=== PATIENT | female | born 1985 | race Caucasian/White ===

== ENCOUNTER 2019-01-23 06:22 | Emergency (ER) | payer BC ==
[2019-01-23] MEDS ORDERED: 0.9 % SODIUM CHLORIDE 1,000 ML BAG IV ONE (06:29)
--- NOTE | 2019-01-23 06:40 | Emergency Department Record ---
History of Present Illness - General Source: Patient - History of Present Illness Initial comments: Livier is a [id number] [birth year] who took her home test 12-27-18 which was positive. She has her first appointment with her OB nurse practitioner tomorrow. She has been nauseated and dry heaving since finding out she was . She has soaked one heavy pad and passed multiple quarter sized clots but has seen no tissue. She has had mild cramping since this a.m. at 0600. Complaint: Other (vaginal bleeding with mild cramping) <MISSY SANDERS - Last Filed: 01/23/19 06:27> <Reid Lindsey - Last Filed: 01/23/19 09:58> - General Chief complaint: complication Stated complaint: POSS. MISCARRIAGE Time Seen by Provider: 01/23/19 06:27 - Related Data Allergies Allergy/AdvReac Type Severity Reaction Status Date / Time No Known Drug Allergies Allergy Verified 01/23/19 06:59 Review of Systems Reviewed: No additional complaints except as noted below Constitutional: Reports: As per HPI. Denies: Chills, Fever, Malaise, Night sweats, Weakness, Weight change Eyes: Reports: As per HPI. Denies: Eye discharge, Eye pain, Photophobia, Vision change ENT: Reports: As per HPI. Denies: Congestion, Dental pain, Ear pain, Epistaxis , Hearing loss, Throat pain Respiratory: Reports: As per HPI. Denies: Cough, Dyspnea, Hemoptysis, Stridor, Wheezes Cardiovascular: Reports: As per HPI. Denies: Arrhythmia, Chest pain, Dyspnea on exertion, Edema, Murmurs, Orthopnea, Palpitations, Paroxysmal nocturnal dyspnea, Rheumatic Fever, Syncope Endocrine: Reports: As per HPI. Denies: Fatigue, Heat or cold intolerance, Polydipsia, Polyuria Gastrointestinal: Reports: As per HPI, Nausea. Denies: Abdominal pain, Constipation, Diarrhea, Hematemesis, Hematochezia, Melena, Vomiting Genitourinary: Reports: As per HPI. Denies: Abnormal menses, Discharge, Dyspareunia, Dysuria, Frequency, Hematuria, Incontinence, Retention, Urgency Musculoskeletal: Reports: As per HPI. Denies: Arthralgia, Back pain, Gout, Joint swelling, Myalgia, Neck pain Skin: Reports: As per HPI. Denies: Bruising, Change in color, Change in hair/ nails, Lesions, Pruritus, Rash Neurological: Reports: As per HPI. Denies: Abnormal gait, Confusion, Headache, Numbness, Paresthesias, Seizure, Tingling, Tremors, Vertigo, Weakness Psychiatric: Reports: As per HPI. Denies: Anxiety, Auditory hallucinations, Depression, Homicidal thoughts, Suicidal thoughts, Visual hallucinations Hematological/Lymphatic: Reports: As per HPI. Denies: Anemia, Blood Clots, Easy bleeding, Easy bruising, Swollen glands <MISSY SANDERS - Last Filed: 01/23/19 06:27> Past Medical History - SOCIAL HISTORY Smoking Status: Former smoker <SOHEILAJOSERICHIEMISSY A - Last Filed: 01/23/19 06:27> Physical Exam - General General Appearance: Alert, Oriented x3, Cooperative, Mild distress (tearful) - Head Head exam: Normal inspection - Eye Eye exam: Normal appearance, PERRL, EOMI. negative: Conjunctival injection, Nystagmus Pupils: Normal accommodation - ENT ENT exam: Normal exam, Mucous membranes moist, Normal external ear exam, Normal orophraynx, TM's normal bilaterally Ear exam: Normal external inspection. negative: External canal tenderness Nasal Exam: Normal inspection. negative: Discharge, Sinus tenderness Mouth exam: Normal external inspection, Tongue normal Teeth exam: Normal inspection. negative: Dental caries Throat exam: Normal inspection. negative: Tonsillar erythema, Tonsillar exudate - Neck Neck exam: Normal inspection, Full ROM. negative: Lymphadenopathy, Meningismus , Tenderness - Respiratory Respiratory exam: Normal lung sounds bilaterally. negative: Respiratory distress - Cardiovascular Cardiovascular Exam: Normal rhythm, Normal heart sounds, Tachycardia - GI/Abdominal GI/Abdominal exam: Soft, Normal bowel sounds, Other (obese, soft, nontender). negative: Tenderness - Rectal Rectal exam: Deferred - exam: Vaginal bleeding (estimated to be the amount of a heaavy period, no tissue ), Other (os closed, no clots in vault; unable to feel size of uterus due to obesity) - Extremities Extremities exam: Normal inspection, Full ROM, Normal capillary refill. negative: Calf tenderness, Pedal edema, Tenderness - Back Back exam: Reports: Normal inspection, Full ROM. Denies: CVA tenderness (R), CVA tenderness (L), Muscle spasm, Rash noted, Tenderness - Neurological Neurological exam: Alert, CN II-XII intact, Normal gait, Oriented X3, Reflexes normal. negative: Altered, Motor sensory deficit - Psychiatric Psychiatric exam: Normal affect, Normal mood - Skin Skin exam: Dry, Intact, Normal color, Warm <MISSY SANDERS - Last Filed: 01/23/19 06:27> Course - Reevaluation(s) Reevaluation #1: Patient declined the zofran that was offered her. Care is turned over to Dr. Lindsey due to shift change due to pending studies. 01/23/19 07:04 <MISSY SANDERS - Last Filed: 01/23/19 06:27> Vital Signs 01/23/19 01/23/19 01/23/19 06:25 06:28 07:22 Temperature 97.7 F 97.7 F Pulse Rate 104 H Pulse Rate [ 72 52 L Pulse Ox Probe] Respiratory 16 16 16 Rate Blood Pressure 135/89 Blood Pressure 135/89 [Left Arm] Blood Pressure 126/77 [Right Arm] Pulse Ox 99 99 100 - Reevaluation(s) Reevaluation #2: The patient just returned from [place] and is doing OK. She is having some pelvic cramping with some mild bleeding but denies any need for pain. 01/23/19 09:28 Reevaluation #3: The patient is doing very well at this time. She has no further bleeding but is having some mild cramping. I did discuss the case with Starla in Dr. Harini Herrmann office in [place] and she would like an HCG to be drawn in 2 days and the patient to F/U in the office. The patient understands and is aware of the plan. 01/23/19 09:56 <Reid Lindsey - Last Filed: 01/23/19 09:58> Medical Decision Making - Lab Data Result diagrams: 01/23/19 07:00 01/23/19 07:00 Lab Results 01/23/19 01/23/19 01/23/19 Range/Units 07:00 07:00 07:00 WBC 6.6 (4.2-12.2) K/uL RBC 3.86 (3.80-5.40) M/uL Hgb 11.7 (11.6-16.0) gm/dl Hct 36.9 (35.0-47.0) % MCV 95.6 (81-97) fl MCH 30.3 (27-33) pg MCHC 31.7 L (32-36) g/dl RDW 13.8 (11.5-14.5) % Plt Count 284 (130-400) K/uL MPV 9.6 (7.4-10.4) fl Gran % 71.4 (47-80) % Lymphocytes % 17.1 (16-45) % Monocytes % 8.3 (0-9) % Eosinophils % 2.6 (0-6) % Basophils % 0.6 (0-6) % PT 9.8 (9.5-12.1) SECONDS INR 1.0 APTT 27.7 (24.5-39.1) SECONDS Sodium (136-145) mmol/L Potassium (3.4-4.5) mmol/L Chloride (98-107) mmol/L Carbon Dioxide (22-29) mmol/L Anion Gap (7-16) BUN (6-20) mg/dL Creatinine (0.5-0.9) mg/dL Estimated GFR mL/min Random Glucose (74-109) mg/dL Calcium (8.6-10.0) mg/dL Total Bilirubin (0.2-1.0) mg/dL AST (10.0-35.0) U/L ALT (<33) U/L Alkaline Phosphatase (35-104) U/L Total Protein (6.6-8.7) g/dL Albumin (4.0-5.0) g/dL Globulin (1.4-4.8) gm/dL Albumin/Globulin Ratio (1.1-1.8) Total Beta HCG mIU/mL Urine Color Yellow Urine Appearance Clear Urine pH 6.5 (5.0-8.0) Ur Specific [place] 1.025 (1.002-1.030) Urine Protein Negative (NEGATIVE) Urine Glucose (UA) Negative (NEGATIVE) Urine Ketones Negative (NEGATIVE) Urine Blood Large H (NEGATIVE) Urine Nitrite Negative (NEGATIVE) Urine Bilirubin Negative (NEGATIVE) Urine Urobilinogen 0.2 (0.20 - 1.00) E.U./dL Ur Leukocyte Esterase Negative (NEGATIVE) Urine RBC 10 - 15 (NONE SEEN) Urine WBC 0 - 2 (0-2/hpf) Ur Epithelial Cells 0 - 2 (FEW) Urine HCG, Qual Cancelled Rh Factor 01/23/19 01/23/19 01/23/19 Range/Units 07:00 07:00 07:08 WBC (4.2-12.2) K/uL RBC (3.80-5.40) M/uL Hgb (11.6-16.0) gm/dl Hct (35.0-47.0) % MCV (81-97) fl MCH (27-33) pg MCHC (32-36) g/dl RDW (11.5-14.5) % Plt Count (130-400) K/uL MPV (7.4-10.4) fl Gran % (47-80) % Lymphocytes % (16-45) % Monocytes % (0-9) % Eosinophils % (0-6) % Basophils % (0-6) % PT (9.5-12.1) SECONDS INR APTT (24.5-39.1) SECONDS Sodium 141 (136-145) mmol/L Potassium 4.1 (3.4-4.5) mmol/L Chloride 109 H (98-107) mmol/L Carbon Dioxide 22.0 (22-29) mmol/L Anion Gap 10.0 (7-16) BUN 10 (6-20) mg/dL Creatinine 0.4 L (0.5-0.9) mg/dL Estimated GFR > 60 mL/min Random Glucose 94 (74-109) mg/dL Calcium 8.6 (8.6-10.0) mg/dL Total Bilirubin 0.20 (0.2-1.0) mg/dL AST 13 (10.0-35.0) U/L ALT 13 (<33) U/L Alkaline Phosphatase 88 (35-104) U/L Total Protein 6.9 (6.6-8.7) g/dL Albumin 3.9 L (4.0-5.0) g/dL Globulin 3.0 (1.4-4.8) gm/dL Albumin/Globulin Ratio 1.3 (1.1-1.8) Total Beta HCG > 16269 mIU/mL Urine Color Urine Appearance Urine pH (5.0-8.0) Ur Specific [place] (1.002-1.030) Urine Protein (NEGATIVE) Urine Glucose (UA) (NEGATIVE) Urine Ketones (NEGATIVE) Urine Blood (NEGATIVE) Urine Nitrite (NEGATIVE) Urine Bilirubin (NEGATIVE) Urine Urobilinogen (0.20 - 1.00) E.U./dL Ur Leukocyte Esterase (NEGATIVE) Urine RBC (NONE SEEN) Urine WBC (0-2/hpf) Ur Epithelial Cells (FEW) Urine HCG, Qual Rh Factor Positive <Reid Lindsey Carmen - Last Filed: 01/23/19 09:58> Disposition <CHASEVASQUEZSaranKORIY Steve - Last Filed: 01/23/19 06:27> Disposition: Discharge Time of Disposition: 09:56 <Reid Lindsey Carmen - Last Filed: 01/23/19 09:58> Clinical Impression: Threatened in early Disposition: Home, Self-Care Condition: (2) Stable Instructions: Threatened Miscarriage (ED) Additional Instructions: Please take Tylenol for cramping and please see Dr. Rodriguez early next week for recheck. Have the Quantitative HCG drawn on Sunday. Return to the ER for any worsening pain, fever, or worsening bleeding. Quality - Blood Pressure Screening Does Patient Have Any of the Following: No <MISSY SANDERS - Last Filed: 01/23/19 06:27> - Quality Measures Quality Measures: (14-50yr) - : US Determination Quality Measure: Measure #254: US Determination of Location ICD10 Codes Entered: Yes View Details: Yes US Determination of Location: < Trans-Abdominal or Trans-Vaginal US Performed > [G8806] - : Rhogam Quality Measure: Measure #255: Rhogam for Rh-Negative Women ICD10 Codes Entered: Yes View Details: Yes Rhogam for Rh-Negative Women at Risk: Rh-immunoglobulin NOT Ordered w/ Reason [G8810] Reason for not prescribing Rhogam: Other - Blood Pressure Screening View Details: Yes Does Patient Have Any of the Following: No Blood Pressure Classification: Pre-Hypertensive BP Reading Systolic Measurement: 135 Diastolic Measurement: 89 Screening for High Blood Pressure: < Pre-Hypertensive BP, F/U Documented > [ G8950] Pre-Hypertensive Follow-up Interventions: Referral to alternative/primary care provider. <Reid Lindsey - Last Filed: 01/23/19 09:58>
[2019-01-23 07:03] LABS: BASO % 0.6 % (0-6); EOS % 2.6 % (0-6); GRAN % 71.4 % (47-80); HEMATOCRIT 36.9 % (35.0-47.0); HEMOGLOBIN 11.7 gm/dl (11.6-16.0); LYMPH % 17.1 % (16-45); MEAN CELL VOLUME 95.6 fl (81-97); MEAN CORPUSCULAR HEMOGLOBIN 30.3 pg (27-33); MEAN CORPUSCULAR HGB CONC 31.7 g/dl (32-36); MEAN PLATELET VOLUME 9.6 fl (7.4-10.4); MONO % 8.3 % (0-9); PLATELET COUNT 284 K/uL (130-400); RED BLOOD COUNT 3.86 M/uL (3.80-5.40); RED CELL DISTRIBUTION WIDTH 13.8 % (11.5-14.5); WHITE BLOOD COUNT W/O DIFF 6.6 K/uL (4.2-12.2)
[2019-01-23 07:05] LABS: URINE APPEARANCE CLEAR; URINE BILIRUBIN NEGATIVE (NEGATIVE); URINE BLOOD LARGE (NEGATIVE); URINE COLOR YELLOW; URINE GLUCOSE (UA) NEGATIVE (NEGATIVE); URINE KETONE NEGATIVE (NEGATIVE); URINE LEUKOCYTE ESTERASE NEGATIVE (NEGATIVE); URINE NITRITE NEGATIVE (NEGATIVE); URINE PROTEIN NEGATIVE (NEGATIVE); URINE UROBILINOGEN 0.2 E.U./dL (0.20 - 1.00)
[2019-01-23 07:13] LABS: PARTIAL THROMBOPLASTIN TIME 27.7 SECONDS (24.5-39.1); PROTHROMBIN TIME (PATIENT) 9.8 SECONDS (9.5-12.1)
[2019-01-23 07:15] LABS: BLOOD UREA NITROGEN 10 mg/dL (6-20); CREATININE 0.4 mg/dL (0.5-0.9); EST GLOMERULAR FILTRATION RATE > 60 mL/min
[2019-01-23 07:16] LABS: TOTAL PROTEIN 6.9 g/dL (6.6-8.7)
[2019-01-23 07:17] LABS: URINE EPITHELIAL CELLS 0 - 2 (FEW); URINE WBC 0 - 2 (0-2/hpf)
[2019-01-23 07:18] LABS: GLUCOSE,RANDOM 94 mg/dL (74-109)
[2019-01-23 07:21] LABS: ALB/GLOB RATIO 1.3 (1.1-1.8); ALBUMIN 3.9 g/dL (4.0-5.0); ALKALINE PHOSPHATASE 88 U/L (35-104); ALT/SGPT 13 U/L (<33); AST/SGOT 13 U/L (10.0-35.0)
[2019-01-23] MEDS ORDERED: ACETAMINOPHEN 325 MG TAB PO ONE (09:34)
--- NOTE | 2019-01-23 10:01 | Emergency Department Record ---
History of Present Illness - General Chief complaint: complication Stated complaint: POSS. MISCARRIAGE Time Seen by Provider: 01/23/19 06:27 Source: Patient Mode of Arrival: Ambulatory - History of Present Illness Onset/Timin -: Minutes(s) Location: Pelvis Severity scale (1-10): 3 Quality: Cramping Consistency: Constant Improves with: None Worsens with: None Vaginal bleeding: Clots Number of weeks : 9 11/21/18 - Related Data Allergies Allergy/AdvReac Type Severity Reaction Status Date / Time No Known Drug Allergies Allergy Verified 01/23/19 06:59 Review of Systems Constitutional: Reports: As per HPI. Denies: Chills, Fever, Malaise, Night sweats, Weakness, Weight change Eyes: Reports: As per HPI. Denies: Eye discharge, Eye pain, Photophobia, Vision change ENT: Reports: As per HPI. Denies: Congestion, Dental pain, Ear pain, Epistaxis , Hearing loss, Throat pain Respiratory: Reports: As per HPI. Denies: Cough, Dyspnea, Hemoptysis, Stridor, Wheezes Cardiovascular: Reports: As per HPI. Denies: Arrhythmia, Chest pain, Dyspnea on exertion, Edema, Murmurs, Orthopnea, Palpitations, Paroxysmal nocturnal dyspnea, Rheumatic Fever, Syncope Endocrine: Reports: As per HPI. Denies: Fatigue, Heat or cold intolerance, Polydipsia, Polyuria Gastrointestinal: Reports: As per HPI, Nausea. Denies: Abdominal pain, Constipation, Diarrhea, Hematemesis, Hematochezia, Melena, Vomiting Genitourinary: Reports: As per HPI. Denies: Abnormal menses, Discharge, Dyspareunia, Dysuria, Frequency, Hematuria, Incontinence, Retention, Urgency Musculoskeletal: Reports: As per HPI. Denies: Arthralgia, Back pain, Gout, Joint swelling, Myalgia, Neck pain Skin: Reports: As per HPI. Denies: Bruising, Change in color, Change in hair/ nails, Lesions, Pruritus, Rash Neurological: Reports: As per HPI. Denies: Abnormal gait, Confusion, Headache, Numbness, Paresthesias, Seizure, Tingling, Tremors, Vertigo, Weakness Psychiatric: Reports: As per HPI. Denies: Anxiety, Auditory hallucinations, Depression, Homicidal thoughts, Suicidal thoughts, Visual hallucinations Hematological/Lymphatic: Reports: As per HPI. Denies: Anemia, Blood Clots, Easy bleeding, Easy bruising, Swollen glands Past Medical History - SOCIAL HISTORY Smoking Status: Former smoker - RESPIRATORY Hx Respiratory Disorders: No - CARDIOVASCULAR Hx Cardio Disorders: No - NEURO Hx Neuro Disorders: No - GI Hx GI Disorders: Yes Hx Reflux: Yes - Hx Genitourinary Disorders: No - ENDOCRINE Hx Endocrine Disorders: No Hx Thyroid Disease: Yes - MUSCULOSKELETAL Hx Musculoskeletal Disorders: No - PSYCH Hx Psych Problems: Yes Hx Anxiety: Yes Hx Depression: Yes - HEMATOLOGY/ONCOLOGY Hx Hematology/Oncology Disorders: No Family Medical History Any Significant Family History?: Yes Hx Cancer: Grandparents Hx Diabetes: Grandparents Hx Heart Disease: Grandparents Hx HTN: Mother Course Vital Signs 01/23/19 01/23/19 01/23/19 06:25 06:28 07:22 Temperature 97.7 F 97.7 F Pulse Rate 104 H Pulse Rate [ 72 52 L Pulse Ox Probe] Respiratory 16 16 16 Rate Blood Pressure 135/89 Blood Pressure 135/89 [Left Arm] Blood Pressure 126/77 [Right Arm] Pulse Ox 99 99 100 Medical Decision Making - Data Complexity MDM Data: Labs Ordered and/or Reviewed (Patient RH +.), X-Ray Ordered and/or Reviewed - Lab Data Result diagrams: 01/23/19 07:00 01/23/19 07:00 Lab Results 01/23/19 01/23/19 01/23/19 Range/Units 07:00 07:00 07:00 WBC 6.6 (4.2-12.2) K/uL RBC 3.86 (3.80-5.40) M/uL Hgb 11.7 (11.6-16.0) gm/dl Hct 36.9 (35.0-47.0) % MCV 95.6 (81-97) fl MCH 30.3 (27-33) pg MCHC 31.7 L (32-36) g/dl RDW 13.8 (11.5-14.5) % Plt Count 284 (130-400) K/uL MPV 9.6 (7.4-10.4) fl Gran % 71.4 (47-80) % Lymphocytes % 17.1 (16-45) % Monocytes % 8.3 (0-9) % Eosinophils % 2.6 (0-6) % Basophils % 0.6 (0-6) % PT 9.8 (9.5-12.1) SECONDS INR 1.0 APTT 27.7 (24.5-39.1) SECONDS Sodium (136-145) mmol/L Potassium (3.4-4.5) mmol/L Chloride (98-107) mmol/L Carbon Dioxide (22-29) mmol/L Anion Gap (7-16) BUN (6-20) mg/dL Creatinine (0.5-0.9) mg/dL Estimated GFR mL/min Random Glucose (74-109) mg/dL Calcium (8.6-10.0) mg/dL Total Bilirubin (0.2-1.0) mg/dL AST (10.0-35.0) U/L ALT (<33) U/L Alkaline Phosphatase (35-104) U/L Total Protein (6.6-8.7) g/dL Albumin (4.0-5.0) g/dL Globulin (1.4-4.8) gm/dL Albumin/Globulin Ratio (1.1-1.8) Total Beta HCG mIU/mL Urine Color Yellow Urine Appearance Clear Urine pH 6.5 (5.0-8.0) Ur Specific [place] 1.025 (1.002-1.030) Urine Protein Negative (NEGATIVE) Urine Glucose (UA) Negative (NEGATIVE) Urine Ketones Negative (NEGATIVE) Urine Blood Large H (NEGATIVE) Urine Nitrite Negative (NEGATIVE) Urine Bilirubin Negative (NEGATIVE) Urine Urobilinogen 0.2 (0.20 - 1.00) E.U./dL Ur Leukocyte Esterase Negative (NEGATIVE) Urine RBC 10 - 15 (NONE SEEN) Urine WBC 0 - 2 (0-2/hpf) Ur Epithelial Cells 0 - 2 (FEW) Urine HCG, Qual Cancelled Rh Factor 01/23/19 01/23/19 01/23/19 Range/Units 07:00 07:00 07:08 WBC (4.2-12.2) K/uL RBC (3.80-5.40) M/uL Hgb (11.6-16.0) gm/dl Hct (35.0-47.0) % MCV (81-97) fl MCH (27-33) pg MCHC (32-36) g/dl RDW (11.5-14.5) % Plt Count (130-400) K/uL MPV (7.4-10.4) fl Gran % (47-80) % Lymphocytes % (16-45) % Monocytes % (0-9) % Eosinophils % (0-6) % Basophils % (0-6) % PT (9.5-12.1) SECONDS INR APTT (24.5-39.1) SECONDS Sodium 141 (136-145) mmol/L Potassium 4.1 (3.4-4.5) mmol/L Chloride 109 H (98-107) mmol/L Carbon Dioxide 22.0 (22-29) mmol/L Anion Gap 10.0 (7-16) BUN 10 (6-20) mg/dL Creatinine 0.4 L (0.5-0.9) mg/dL Estimated GFR > 60 mL/min Random Glucose 94 (74-109) mg/dL Calcium 8.6 (8.6-10.0) mg/dL Total Bilirubin 0.20 (0.2-1.0) mg/dL AST 13 (10.0-35.0) U/L ALT 13 (<33) U/L Alkaline Phosphatase 88 (35-104) U/L Total Protein 6.9 (6.6-8.7) g/dL Albumin 3.9 L (4.0-5.0) g/dL Globulin 3.0 (1.4-4.8) gm/dL Albumin/Globulin Ratio 1.3 (1.1-1.8) Total Beta HCG > 75986 mIU/mL Urine Color Urine Appearance Urine pH (5.0-8.0) Ur Specific [place] (1.002-1.030) Urine Protein (NEGATIVE) Urine Glucose (UA) (NEGATIVE) Urine Ketones (NEGATIVE) Urine Blood (NEGATIVE) Urine Nitrite (NEGATIVE) Urine Bilirubin (NEGATIVE) Urine Urobilinogen (0.20 - 1.00) E.U./dL Ur Leukocyte Esterase (NEGATIVE) Urine RBC (NONE SEEN) Urine WBC (0-2/hpf) Ur Epithelial Cells (FEW) Urine HCG, Qual Rh Factor Positive - Radiology Data Radiology results: Report reviewed (US: IUP with no pole or heart beat. Most consistent with miscarriage. Trace free fluid.) Disposition Clinical Impression: Threatened in early Disposition: Home, Self-Care Condition: (2) Stable Instructions: Threatened Miscarriage (ED) Additional Instructions: Please take Tylenol for cramping and please see Dr. Rodriguez early next week for recheck. Have the Quantitative HCG drawn on Sunday. Return to the ER for any worsening pain, fever, or worsening bleeding. Forms: Patient Portal Access Quality - Quality Measures Quality Measures: (14-50yr) - : US Determination Quality Measure: Measure #254: US Determination of Location ICD10 Codes Entered: Yes View Details: Yes US Determination of Location: < Trans-Abdominal or Trans-Vaginal US Performed > [G8806] - : Rhogam Quality Measure: Measure #255: Rhogam for Rh-Negative Women ICD10 Codes Entered: Yes View Details: Yes Rhogam for Rh-Negative Women at Risk: Rh-immunoglobulin NOT Ordered w/ Reason [G8810] Reason for not prescribing Rhogam: Other - Blood Pressure Screening View Details: Yes Does Patient Have Any of the Following: No Blood Pressure Classification: Pre-Hypertensive BP Reading Systolic Measurement: 135 Diastolic Measurement: 89 Screening for High Blood Pressure: < Pre-Hypertensive BP, F/U Documented > [ G8950] Pre-Hypertensive Follow-up Interventions: Referral to alternative/primary care provider.
--- NOTE | 2019-01-24 08:47 | ULTRASOUND REPORT ---
EXAM: EARLY OB ULTRASOUND HISTORY: , SPOTTING, NOW PASSING CLOTS. TECHNIQUE: Transabdominal and transvaginal pelvic ultrasound was obtained. Comparison: None. FINDINGS: The uterus measures 9.9 x 5.5 x 6.2 cm and contains a gestational sac , yolk sac, and likely pole. No heart tones are detected. Mean sac diameter is 22 mm. [employer] rump length is approximately 6 mm. The yolk sac measures up to 9 mm. Questionable trace fluid within the cervical canal. Trace volume of free fluid in the left adnexal region. The right ovary measures 2.5 x 1.4 x 2.2 cm and the left ovary measures 2.9 x 2.4 x 2.8 cm. Bilateral intraovarian color flow as well as arterial and venous Doppler waveforms are demonstrated. No adnexal mass is seen. IMPRESSION: 1. INTRAUTERINE GESTATION WITHOUT DETECTABLE HEARTBEAT. FINDINGS OVERALL SUSPICIOUS FOR FAILED EARLY GESTATION. RECOMMEND CORRELATION WITH SERIAL HCG, FOLLOW-UP IMAGING WARRANTED CLINICALLY. 2. TRACE VOLUME OF NONSPECIFIC FREE FLUID NEAR THE LEFT ADNEXA. JOB NUMBER: [id number] [facility]
== END 2019-01-23 10:00 | disposition home or self-care (01) ==
LOC: ER 06:22
DX: O20.0 Threatened abortion (principal); R11.2 Nausea with vomiting, unspecified; Z3A.09 9 weeks gestation of pregnancy; Z87.891 Personal history of nicotine dependence
CPT/HCPCS: 76801; 76817; 80053; 81001; 84702; 85025; 85610; 85730; 86901; 96360; 96361; 99284

== ENCOUNTER 2019-04-25 01:56 | Emergency (ER) | payer BC ==
--- NOTE | 2019-04-25 02:16 | Emergency Department Record ---
History of Present Illness - General Chief complaint: complication Stated complaint: POSSIBLE MISCARRAGE Time Seen by Provider: 04/25/19 02:00 Source: Patient Mode of Arrival: Ambulatory Limitations: No limitations - History of Present Illness Initial comments: 34 yo female at approximately 9 weeks gestation by dates presents to ED for evaluation of lower abdominal cramping, spotting, and loose stools. Patient reports similar symptoms at the end of December, had spontaneous miscarriage at that time. Patient reports seeing her OB earlier in the day (Dr. Claudio), has not undergone US evaluation of this . MD Complaint: Abdominal pain Onset/Timin -: Hour(s) Location: Abdomen Radiation: None Severity: Moderate Quality: Cramping Consistency: Constant Improves with: None Worsens with: None Associated symptoms: Nausea/vomiting Vaginal bleeding: Light No complications Miscarriage - Related Data Allergies Allergy/AdvReac Type Severity Reaction Status Date / Time No Known Drug Allergies Allergy Verified 04/25/19 02:11 Review of Systems Constitutional: Denies: Chills, Fever, Malaise, Night sweats Eyes: Denies: Eye discharge, Eye pain ENT: Denies: Congestion, Ear pain, Epistaxis Respiratory: Denies: Cough, Dyspnea Cardiovascular: Denies: Chest pain, Dyspnea on exertion Endocrine: Denies: Fatigue, Heat or cold intolerance Gastrointestinal: Reports: Abdominal pain, Nausea. Denies: Constipation, Vomiting Genitourinary: Denies: Incontinence, Retention Musculoskeletal: Denies: Arthralgia, Back pain Skin: Denies: Bruising, Change in color Neurological: Denies: Abnormal gait, Confusion, Headache, Seizure Psychiatric: Denies: Anxiety Hematological/Lymphatic: Denies: Anemia, Blood Clots Past Medical History - SOCIAL HISTORY Smoking Status: Former smoker - RESPIRATORY Hx Respiratory Disorders: No - CARDIOVASCULAR Hx Cardio Disorders: No - NEURO Hx Neuro Disorders: No - GI Hx GI Disorders: Yes Hx Reflux: Yes - Hx Genitourinary Disorders: No - ENDOCRINE Hx Endocrine Disorders: No Hx Thyroid Disease: Yes - MUSCULOSKELETAL Hx Musculoskeletal Disorders: No - PSYCH Hx Psych Problems: Yes Hx Anxiety: Yes Hx Depression: Yes - HEMATOLOGY/ONCOLOGY Hx Hematology/Oncology Disorders: No Family Medical History Hx Cancer: Grandparents Hx Diabetes: Grandparents Hx Heart Disease: Grandparents Hx HTN: Mother Physical Exam - General General Appearance: Alert, Oriented x3, Cooperative, Mild distress Limitations: No limitations - Head Head exam: Atraumatic, Normocephalic, Normal inspection Head exam detail: negative: Abrasion, Contusion, Smith's sign, General tenderness, Hematoma, Laceration - Eye Eye exam: Normal appearance. negative: Conjunctival injection, Periorbital swelling, Periorbital tenderness, Scleral icterus - ENT Ear exam: negative: Auricular hematoma, Auricular trauma Nasal Exam: negative: Active bleeding, Discharge, Dried blood, Foreign body Mouth exam: negative: Drooling, Laceration, Muffled voice, Tongue elevation - Neck Neck exam: Normal inspection. negative: Meningismus, Tenderness - Respiratory Respiratory exam: Normal lung sounds bilaterally. negative: Rales, Respiratory distress, Rhonchi, Stridor - Cardiovascular Cardiovascular Exam: Regular rate, Normal rhythm, Normal heart sounds - GI/Abdominal GI/Abdominal exam: Soft. negative: Rebound, Rigid, Tenderness - Rectal Rectal exam: Deferred - exam: Deferred - Extremities Extremities exam: Normal inspection. negative: Pedal edema, Tenderness - Back Back exam: Denies: CVA tenderness (R), CVA tenderness (L) - Neurological Neurological exam: Alert, Normal gait, Oriented X3 - Psychiatric Psychiatric exam: Normal affect, Normal mood - Skin Skin exam: Normal color. negative: Abrasion Type of lesion: negative: abrasion Course - Reevaluation(s) Reevaluation #1: 04/25/19 02:12 Previous records were reviewed, Rh positive. Patient had US pelvis 01/23/19 c/w demise. US is not currently available this morning, will transfer to [facility] ED for US evaluation. Case was discussed with Dr. Stewart, will accept transfer at this time. Disposition Disposition: Transfer Clinical Impression: Abdominal pain affecting Disposition: Acute Care Hospital Transfer Transfer To: [facility] Reason For Transfer: US pelvis Accepting Physician: Terry Time Discussed w/Accepting Physician: 02:16 Condition: (2) Stable Forms: Patient Portal Access Time of Disposition: 02:16 Quality - Quality Measures Quality Measures: N/A, (14-50yr) - : US Determination Quality Measure: Measure #254: US Determination of Location ICD10 Codes Entered: Yes US Determination of Location: < Trans-Abdominal or Trans-Vaginal US Performed > [G8806] - : Rhogam Quality Measure: Measure #255: Rhogam for Rh-Negative Women Rhogam for Rh-Negative Women at Risk: Rh-immunoglobulin NOT Ordered w/Reason [G4410] Reason for not prescribing Rhogam: Other - Blood Pressure Screening Does Patient Have Any of the Following: No Blood Pressure Classification: Pre-Hypertensive BP Reading Systolic Measurement: 119 Diastolic Measurement: 82 Screening for High Blood Pressure: < Pre-Hypertensive BP, F/U Documented > [F5326] Pre-Hypertensive Follow-up Interventions: Referral to alternative/primary care provider.
== END 2019-04-25 02:31 | disposition short-term general hospital (02) ==
LOC: ER 01:56
DX: O03.9 Complete or unspecified spontaneous abortion without complication (principal); E03.9 Hypothyroidism, unspecified
CPT/HCPCS: 99285